=== PATIENT | female | born 1975 | race Caucasian/White ===

== ENCOUNTER 2018-03-01 13:09 | Emergency (ER) | payer OTHER ==
[~2018-03-01] VITALS: Ht 165.1 cm; Wt 105.7 kg
[~2018-03-01 13:09] MED LIST: BACL10TA PO; GABA-112 PO; HYDR-3126 PO; LEVO100T7 PO; SUMA100T16 PO
[2018-03-01 13:21] VITALS: Ht 165.1 cm; Wt 105.7 kg
[2018-03-01] MEDS ORDERED: SODIUM CHLORIDE 0.9% 1000ML 1,000 ML IV STA (13:42)
--- NOTE | 2018-03-01 13:47 | EMERGENCY ROOM VISIT NOTE ---
History Report prepared by Rach: Trent Naylor Under the Supervision of: Dr. Ming Pearson M.D. First contact with patient: 13:30 Chief Complaint: HEADACHE Stated Complaint: HEADACHE/DIZZINESS/HYPERTENSION History of Present Illness The patient is a 42 year old female who presents to the Emergency Room with complaints of a constant headache and light headedness starting a few days ago. She states that she has had a headache for the past year that is described as a stabbing pain, and nothing makes it better or worse. The patient states that she was at her PCP this morning to go over her medications for anxiety and depression, and she got very dizzy and light headed, and she almost fell. Her blood pressure was then checked and was a little high at 150. She states that she was also put on a blood pressure medication 3 days ago, and she has been a little light headed since then, and she notes that sometimes she gets sweaty. The patient denies any chest pain, shortness of breath, fever, chills, abdominal pain, and any chance of . She reports that she smoked marijuana for the first time last night for her headache, and she states that this did not help. The patient states that her anxiety and depression have not been doing well recently, though she denies any thoughts of hurting herself or anyone else. She notes that she has gained a couple of pounds recently, and she states that she has been sleeping a little bit better recently. Source of History: patient Onset: a few days ago Position: head, other (generalized) Quality: ache, other (light headedness) Timing: constant Associated Symptoms: No fevers, No chills, No chest pain, No SOB, No abdominal pain Note: Associated symptoms: Dizzy and sweaty Review of Systems See HPI for pertinent positives & negatives. A total of 10 systems reviewed and were otherwise negative. Past Medical & Surgical Medical Problems: (1) Anxiety (2) Depression Old medical records were reviewed. Nurse's notes were reviewed and I agree with. Social History Smoking Status: Current Every Day Smoker Drug Use: none Marital Status: other Occupation Status: disabled Current/Historical Medications Scheduled Candesartan Cilexetil (Atacand), 32 MG PO DAILY Hydroxyzine Hcl (Atarax), 25 MG PO TID Levothyroxine Sodium (Levothyroxine Sodium), 1 TAB PO DAILY Sertraline (Zoloft), 50 MG PO DAILY Trazodone Hcl (Trazodone), 50 MG PO HS Allergies Coded Allergies: Morphine (Unverified Allergy, Severe, Hives,Severe Itch, 03/01/18) Tramadol (Unverified Allergy, Intermediate, Hives,severe itching, 03/01/18) Physical Exam Vital Signs Date Time Temp Pulse Resp B/P (MAP) Pulse Ox O2 Delivery O2 Flow Rate FiO2 03/01/18 16:08 36.5 83 21 120/81 96 03/01/18 14:59 82 20 120/81 94 Room Air 03/01/18 13:39 85 15 95 03/01/18 13:22 79 03/01/18 13:21 36.5 81 14 123/85 95 Room Air 03/01/18 13:15 123/85 Physical Exam General: Non-ill appearing middle aged female in no acute distress. HEENT: Normal cephalic atraumatic. Pupils are equal round and reactive to light. Extraocular movements are intact. Oropharynx is pink with moist mucous membranes. No swelling of the mouth lips or tongue. Neck: Supple with a midline trachea. No meningeal signs or stiffness, no JVD or bruits. No Stridor. Chest: Clear to auscultation bilaterally. No wheezes or rhonchi. No increased work of breathing. Heart: regular rate and rhythm. Abdomen: Soft nontender, nondistended without rebound guarding or rigidity. Extremities: No cyanosis clubbing or edema. No calf tenderness or assymetry Spine/Back. Non tender to palpation. No CVA tenderness Skin: Good turgor without rashes. Neurologic exam: Cranial nerves two through 12 are intact. Motor and sensation are intact and symmetrical throughout. Medical Decision & Procedures ER Provider Diagnostic Interpretation: Radiology results as stated below per my review and radiologist interpretation: HEAD WITHOUT CONTRAST (CT) CLINICAL HISTORY: 42 years-old Female with dizziness. Acute dizziness TECHNIQUE: Multiple axial CT images of the head were obtained without contrast. A dose lowering technique was utilized adhering to the principles of ALARA. CT DOSE: 537.48 mGy.cm COMPARISON: None. FINDINGS: No acute intracranial hemorrhage, midline shift, intracranial mass, hydrocephalus, territorial ischemia or abnormal extra-axial collection. Focal 5 mm area of low-attenuation inferior to the left lentiform nucleus suggests prominent perivascular space. The calvarium is intact. The paranasal sinuses, mastoid air cells, and middle ear cavities are clear. Hypoplasia of the frontal sinuses. Soft tissues and orbits are unremarkable. IMPRESSION: No acute intracranial abnormality. The above report was generated using voice recognition software. It may contain grammatical, syntax or spelling errors. Electronically signed by: Yunior Wheatley M.D. 03/01/2018 2:16 PM Dictated Date/Time: 03/01/2018 2:13 PM CHEST ONE VIEW PORTABLE HISTORY: 42 years-old Female CHEST PAIN acute atypical chest pain COMPARISON: None available TECHNIQUE: Portable AP view the chest FINDINGS: Cardiac silhouette is within normal limits. There is no pneumothorax, pleural effusion, focal airspace consolidation or overt pulmonary edema. Spinal stimulator leads overlie the midthoracic spine terminating at the level of T8-T9. Small hiatal hernia. Bones of the chest appear grossly intact. IMPRESSION: 1. No acute process. 2. Small hiatal hernia. The above report was generated using voice recognition software. It may contain grammatical, syntax or spelling errors. Electronically signed by: Yunior Wheatley M.D. 03/01/2018 2:01 PM Dictated Date/Time: 03/01/2018 1:59 PM Laboratory Results 03/01/18 13:50 Red Blood Count 4.81, Mean Corpuscular Volume 93.6, Mean Corpuscular Hemoglobin 32.6, Mean Corpuscular Hemoglobin Concent 34.9, Mean Platelet Volume 10.1, Neutrophils (%) (Auto) 66.5, Lymphocytes (%) (Auto) 27.0, Monocytes (%) (Auto) 4.8, Eosinophils (%) (Auto) 0.9, Basophils (%) (Auto) 0.5, Neutrophils # (Auto) 5.81, Lymphocytes # (Auto) 2.36, Monocytes # (Auto) 0.42, Eosinophils # (Auto) 0.08, Basophils # (Auto) 0.04 03/01/18 13:50 Test 03/01/18 13:50 03/01/18 13:58 White Blood Count 8.74 K/uL (4.8-10.8) Red Blood Count 4.81 M/uL (4.2-5.4) Hemoglobin 15.7 g/dL (12.0-16.0) Hematocrit 45.0 % (37-47) Mean Corpuscular Volume 93.6 fL (80-100) Mean Corpuscular Hemoglobin 32.6 pg (25-34) Mean Corpuscular Hemoglobin Concent 34.9 g/dl (32-36) Platelet Count 342 K/uL (130-400) Mean Platelet Volume 10.1 fL (7.4-10.4) Neutrophils (%) (Auto) 66.5 % Lymphocytes (%) (Auto) 27.0 % Monocytes (%) (Auto) 4.8 % Eosinophils (%) (Auto) 0.9 % Basophils (%) (Auto) 0.5 % Neutrophils # (Auto) 5.81 K/uL (1.4-6.5) Lymphocytes # (Auto) 2.36 K/uL (1.2-3.4) Monocytes # (Auto) 0.42 K/uL (0.11-0.59) Eosinophils # (Auto) 0.08 K/uL (0-0.5) Basophils # (Auto) 0.04 K/uL (0-0.2) RDW Standard Deviation 44.5 fL (36.4-46.3) RDW Coefficient of Variation 13.1 % (11.5-14.5) Immature Granulocyte % (Auto) 0.3 % Immature Granulocyte # (Auto) 0.03 K/uL (0.00-0.02) Anion Gap 8.0 mmol/L (3-11) Est Creatinine Clear Calc Drug Dose 78.9 ml/min Estimated GFR () 70.4 Estimated GFR (Non- 60.8 BUN/Creatinine Ratio 7.7 (10-20) Calcium Level 9.3 mg/dl (8.5-10.1) Total Bilirubin 0.6 mg/dl (0.2-1) Direct Bilirubin 0.1 mg/dl (0-0.2) Aspartate Amino Transf (AST/SGOT) 32 U/L (15-37) Alanine Aminotransferase (ALT/SGPT) 43 U/L (12-78) Alkaline Phosphatase 67 U/L (45-117) Total Protein 8.3 gm/dl (6.4-8.2) Albumin 3.7 gm/dl (3.4-5.0) Lipase 91 U/L (73-393) Bedside Troponin I < 0.030 ng/ml (0-0.045) Laboratory studies as stated above per my review. Medications Administered Medications (Trade) Dose Ordered Sig/Tyree Route Start Time Stop Time Status Last Admin Dose Admin Sodium Chloride 1,000 ml @ 999 mls/hr Q1H1M STAT IV 03/01/18 13:42 03/01/18 14:42 DC 03/01/18 13:54 999 MLS/HR ECG Per My Interpretation Indication: other (hypertension) Rate (beats per minute): 90 Rhythm: normal sinus Findings: no acute ischemic change, no ectopy, other (Non specific T wave abnormality) Comparison ECG Date: no prior available ED Course 1330: Past medical records reviewed. The patient was evaluated in room C11, and a complete history and physical examination were performed. 1342: Sodium Chloride 1000 ml @ 999 mls/hr IV 1533: Upon reevaluation, the patient is doing well. I discussed the results and treatment plan with her. She verbalized agreement of the treatment plan. The patient was discharged home. Medical Decision Differentials include, but are not limited to; headache, hypertensive emergency , intractable hemorrhage, cardiac disease, infection, electrolyte or metabolic abnormality. This patient comes in as described above she was sent over from her doctor's office for dizziness headache and hypertension. Her blood pressures improved here and prior to discharge it was 120/80 without any treatment. She has a normal neurologic exam. She has had anxiety and this may be causing her blood pressure to be elevated. She has no evidence of any endorgan damage I did do a CAT scan of her head is unremarkable and she no acute intracranial process. She has nothing by history or exam to suggest encephalitis or EKG is unremarkable. She has no acute electrolyte or metabolic abnormality. she has nothing to suggest renal disease. I talked the patient at length she thinks her symptoms are gotten worse after being started on a blood pressure medication for migraine 3 days ago she feels more dizzy. I recommended she hold this medication and talk to her neurologist about this may be that she needs a different medication or start with a smaller dosage. She will be able to be discharged home. I encouraged her to return if: increasing pain, worsening of symptoms, any new problems or concerns. Medication Reconcilliation Current Medication List: was personally reviewed by me Blood Pressure Screening Patient's blood pressure: Elevated blood pressure Blood pressure disposition: Referred to PCP Impression Primary Impression: Headache Additional Impressions: Anxiety HTN (hypertension) Scribe Attestation The scribe's documentation has been prepared under my direction and personally reviewed by me in its entirety. I confirm that the note above accurately reflects all work, treatment, procedures, and medical decision making performed by me. Departure Information Dispostion Home / Self-Care Referrals Ty Smith D.O. (PCP) Forms HOME CARE DOCUMENTATION FORM, IMPORTANT VISIT INFORMATION Patient Instructions My [facility] Additional Instructions Rest. Drink plenty of fluids. Call your neurologist and discuss your new medication. They may want to either stop that or decrease the dose Check your blood pressure frequently and log it and follow-up with her regular doctor Return to the ER if: Increasing pain, worsening of symptoms, any new problems or concerns Problem Qualifiers
--- NOTE | 2018-03-01 14:03 | DIAGNOSTIC IMAGING REPORT ---
CHEST ONE VIEW PORTABLE HISTORY: 42 years-old Female CHEST PAIN acute atypical chest pain COMPARISON: None available TECHNIQUE: Portable AP view the chest FINDINGS: Cardiac silhouette is within normal limits. There is no pneumothorax, pleural effusion, focal airspace consolidation or overt pulmonary edema. Spinal stimulator leads overlie the midthoracic spine terminating at the level of T8-T9. Small hiatal hernia. Bones of the chest appear grossly intact. IMPRESSION: 1. No acute process. 2. Small hiatal hernia. The above report was generated using voice recognition software. It may contain grammatical, syntax or spelling errors. Electronically signed by: Yunior Wheatley M.D. 03/01/2018 2:01 PM Dictated Date/Time: 03/01/2018 1:59 PM
[2018-03-01] MEDS ORDERED: CAND32TA2 PO (14:04)
[2018-03-01] MEDS ORDERED: SERT50TA PO (14:04)
[2018-03-01] MEDS ORDERED: HYDR-3126 PO (14:04)
[2018-03-01] MEDS ORDERED: TRAZ50TA35 PO (14:04)
[2018-03-01 14:14] LABS: BASO % 0.5 %; BASO ABS # 0.04 K/uL (0-0.2); EOS % 0.9 %; EOS ABS # 0.08 K/uL (0-0.5); HEMOGLOBIN 15.7 g/dL (12.0-16.0); IG# 0.03 K/uL (0.00-0.02); LYMPH ABS # 2.36 K/uL (1.2-3.4); MEAN CELL VOLUME 93.6 fL (80-100); MEAN CORPUSCULAR HEMOGLOBIN 32.6 pg (25-34); MEAN CORPUSCULAR HGB CONC 34.9 g/dl (32-36); MEAN PLATELET VOLUME 10.1 fL (7.4-10.4); MONO % 4.8 %; MONO ABS # 0.42 K/uL (0.11-0.59); NEUT % 66.5 %; NEUT ABS # 5.81 K/uL (1.4-6.5); PLATELET COUNT 342 K/uL (130-400); RED CELL DISTRIBUTION WIDTH CV 13.1 % (11.5-14.5); RED CELL DISTRIBUTION WIDTH SD 44.5 fL (36.4-46.3); WHITE BLOOD COUNT 8.74 K/uL (4.8-10.8)
--- NOTE | 2018-03-01 14:18 | DIAGNOSTIC IMAGING REPORT ---
HEAD WITHOUT CONTRAST (CT) CLINICAL HISTORY: 42 years-old Female with dizziness. Acute dizziness TECHNIQUE: Multiple axial CT images of the head were obtained without contrast. A dose lowering technique was utilized adhering to the principles of ALARA. CT DOSE: 537.48 mGy.cm COMPARISON: None. FINDINGS: No acute intracranial hemorrhage, midline shift, intracranial mass, hydrocephalus, territorial ischemia or abnormal extra-axial collection. Focal 5 mm area of low-attenuation inferior to the left lentiform nucleus suggests prominent perivascular space. The calvarium is intact. The paranasal sinuses, mastoid air cells, and middle ear cavities are clear. Hypoplasia of the frontal sinuses. Soft tissues and orbits are unremarkable. IMPRESSION: No acute intracranial abnormality. The above report was generated using voice recognition software. It may contain grammatical, syntax or spelling errors. Electronically signed by: Yunior Wheatley M.D. 03/01/2018 2:16 PM Dictated Date/Time: 03/01/2018 2:13 PM
[2018-03-01 14:38] LABS: ALBUMIN 3.7 gm/dl (3.4-5.0); CALCIUM 9.3 mg/dl (8.5-10.1); CREATININE 1.11 mg/dl (0.60-1.20); POTASSIUM 4.4 mmol/L (3.5-5.1); TOTAL PROTEIN 8.3 gm/dl (6.4-8.2)
[2018-03-01 16:08] VITALS: BP 120/81; PULSE 83; TEMP 36.5; O2SAT 96
== END 2018-03-01 16:09 | disposition home or self-care (01) ==
LOC: EDBD 13:09 → C.EDC 13:10
DX: R51 Headache (principal); F41.9 Anxiety disorder, unspecified; I10 Essential (primary) hypertension; F12.90 Cannabis use, unspecified, uncomplicated; F32.9 Major depressive disorder, single episode, unspecified; F17.210 Nicotine dependence, cigarettes, uncomplicated; Z79.899 Other long term (current) drug therapy; Z88.5 Allergy status to narcotic agent; Z88.8 Allergy status to other drugs, medicaments and biological substances